=== PATIENT | female | born 1995 | race Caucasian/White ===

== ENCOUNTER → 2019-10-16 13:55 | Outpatient (CLI) | payer MEDICAID | END | disposition home or self-care (01) | LOC: D.US 13:30 | PROVIDERS: ATTEND Obstetrics & Gynecology Gynecology | DX: O09.90 Supervision of high risk pregnancy, unspecified, unspecified trimester (principal); Z3A.00 Weeks of gestation of pregnancy not specified ==

== ENCOUNTER → 2019-11-27 12:00 | Outpatient (CLI) | payer MEDICAID | END | disposition home or self-care (01) | LOC: D.US 12:00 | PROVIDERS: ATTEND Internal Medicine Rheumatology | DX: O09.899 Supervision of other high risk pregnancies, unspecified trimester (principal); Z3A.00 Weeks of gestation of pregnancy not specified ==